=== PATIENT | female | born 1965 | race Two or more races ===

== ENCOUNTER 2024-02-07 13:41 | Emergency (ER) | payer OTHER ==
[~2024-02-07] VITALS: Ht 160 cm; Wt 86.2 kg
[2024-02-07] MEDS ORDERED: ONDANSETRON HCL 2 MG/ML VIAL IV STA (14:25)
[2024-02-07] MEDS ORDERED: KETOROLAC TROMETHAMINE 15 MG VIAL IV STA (14:26)
[2024-02-07] MEDS ORDERED: FAMOTIDINE/PF 20 MG/2 ML VIAL IV PUSH STA (14:26)
[2024-02-07] MEDS ORDERED: RINGERS SOLUTION,LACTATED 500 ML IV STA (14:27)
[2024-02-07 15:41] LABS: HEMATOCRIT 32.6 % (36.0-45.00); HEMOGLOBIN 11.1 g/dL (12.0-15.00); MEAN CELL VOLUME 91.2 fL (80.00-100.00); MEAN CORPUSCULAR HEMOGLOBIN 31.1 pg (27.00-32.0); MEAN CORPUSCULAR HGB CONC 34.1 g/dl (32.0-36.0); PLATELET COUNT 217 K/uL (150-450); RED BLOOD COUNT 3.57 M/uL (4.00-6.00); RED CELL DISTRIBUTION WIDTH 13.3 % (11.5-14.5)
[2024-02-07 16:30] LABS: CALCIUM 8.8 mg/dL (8.5-10.1); CREATININE SERUM 1.18 mg/dL (0.55-1.02); GFR 46.88; POTASSIUM 4.28 mEq/L (3.5-5.1)
[2024-02-07] MEDS ORDERED: PANTOPRAZOLE SODIUM 40 MG/VIAL VIAL IV PUSH STA (16:30)
== END 2024-02-07 17:57 | disposition home or self-care (01) ==
LOC: ER 13:41
PROVIDERS: General Practice
DX: R53.81 Other malaise (principal); K29.70 Gastritis, unspecified, without bleeding; Z88.2 Allergy status to sulfonamides